=== PATIENT | female | born 2000 | race American Indian/Alaskan Native ===

== ENCOUNTER 2024-06-14 13:09 | Observation (INO) ==
--- OUTSIDE RECORDS SUMMARY | 2024-06-14 13:13 | External Medical Summary | Continuity of Care Document ---
Author Name Unknown Organization [place] [address] DARCY LUKE Address [address] [place] [address] [phone] [place] [phone] Care Team Providers Care Plant Utility Person Name Role Phone June Conde Primary Care Physician [phone] [id number] Date(s): 06/02/24 - 06/02/24 [place] [address] DARCY STRONG [facility] Obstetrics and Gynecology [address] [place] [address], [phone] [place] [phone] Encounter Diagnosis 20 weeks gestation of (Discharge Diagnosis) - 06/02/24 Pompe's disease(Discharge Diagnosis) - 06/02/24 Placenta previa(Discharge Diagnosis) - 06/02/24 Discharge Disposition: Home or Self Care Attending Physician: CHANCE Parsons Amy L Referring Physician: MD Zhanna, Ree Wan Allergies, Adverse Reactions, Alerts Substance Criticality Severity Reaction Reaction Severity Status peaches lips swell itchy mouth Active peanut allergen extract 1 Edema face/lips/tongue Active 1Outside Source Comment: Mild edema to lips Assessment and Plan Extracted from: Title:MFM return Office Visit Author:Guanakito Parsons Amy L Date:06/02/24 24yo w/ MARJORIE 10/18/24 1)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 - Plan established to continue ERT during to avoid neuromuscular decline.Audra wishes to continue ERT every 2 weeks. --------No adverse effects to breast-fed infants from mothers on ERT have been noted so far, but no information is available around the safety of ERT while breast-feeding. -------If preferred, the mother may use previously expressed milk during the 24 h after the last infusion and discard expressed milk during this time. - Cardiology, Scheduled in Cardio-OB clinic on 07/03/24 - Neurology, not scheduled at this time. referral was sent 04/21/24, will try to do in [facility] Neuro Imbedded clinic--will check on this scheduling via emessage to scheduling on 06/02. - Pulmonology,completed 05/14/[address] Peraza; Her clinical picture is consistent with restrictive ventilatory pattern related to neuromuscular/extrathoracic weakness secondary to Pompe's disease. She does not need to follow up with us, she can follow with her Professor Of Literacy near her home. Advised that if her symptoms were to worsen, she should reach out to us or her Professor Of Literacy earlier as it can be difficult to assess in her case if it is the or her disease causing the symptoms. - Genetics consults pt reports she sees Genetics at an outside facilityand has ongoing care established there - Anesthesia, Scheduled for 09/23/2024 ----Anesthetic input should be discussed and arranged early, with local or regional anesthesia being the techniques of choice, while bearing in mind that muscular skeletal abnormalities may make this difficult. - Delivery Planning Considerations: Discussions about mode of delivery and available options werepresented at MFM consult.Consideration should perhaps be given to a limited length of active second stage (pushing), with an elective assisted vaginal delivery planned, if delivery is not imminent within a specified time period.Audra was not interested in pursing this option. 2)Class III obesity, BMI >40 -Aware of associated risks, see MFM consult -Early GTT returned at 150 and ordered 3 hr OGTT 06/02/2024to be completed at [facility]. -limit weight gainto 11-20lbs - echo scheduled 06/16/2024 -declined cf-DNA screening -Low dose ASA 81mg for PET -Weeklyantenatal testing beginning at 34+0weeks GA 3)LUCY - Continue CPAP use during - f/u with sleep medicine asneeded/per routineand in the periodas recommended 4) Suspected Chronic Hypertension with elevated BP prior to 20 weeks gestation with h/o elevated Liver enzymes and fatty liver - 11/07/2023-122/98. 05/05/2024-16w2d GA BP 141/81, 05/12/2024 147/86 and 151/81. - 05/12 Creatinine, ALT, AST, and platelets are normal in outside records. - 05/05 PCR urine normal - patient believes these BP elevations are related to anxiety associated with office visits and she does not have elevations with her q2wk infusions when they check her BP frequently. -up to date reviewed and emailed to patient on Preeclampsia on 06/02/2024. - taking home BPs with her monitor and have been normal. 5) Complete Placenta Previa on 06/02/2024 detailed ultrasound. - pelvic rest reviewed with couple until previa clears cervix. 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 GBS at 36wks / Care Planning: Gender Unknown-does not want to know sex of baby. Pool Installer Care-TBD Feeding Preference to be discussed--Breast vs. Formula Contraceptive Plan to be made Delivery Plan Induction of labor at 39 weeks for coordination of care.Will plan delivery planning visit around 32-34 wks GA w/ MFM attending RTO as scheduled. Reviewed 09/04 triage number with couple. Instructed to call with any concerns. Medications aspirin 81 mg oral tablet, chewable Start: 04/21/24 10:53:00 AM EDT, 1 tab, PO, Daily, Disp# 30 tab, [facility] Start Date: 04/21/24 Status: Ordered Nexviazyme 100 mg intravenous injection Start: 10/18/23 9:35:00 AM EST Start Date: 10/18/23 Status: Ordered Multivitamins with Vitamin B Complex, Vitamin C, Minerals and L- Methylfolate oral capsule Start: 10/18/23 9:35:00 AM EST Start Date: 10/18/23 Status: Ordered pyridoxine 25 mg oral tablet Start: 05/05/24 11:28:00 PM EDT, 1 tab, PO, q8h, Disp# 30 tab, Refills: 1, B6- take for nausea, Pharmacy: [facility] Start Date: 05/05/24 Status: Ordered Problem List Condition Confirmation Course Effective Dates Status Health atus Informant Multiple nevi Confirmed Active Recurrent nevus Confirmed Active Confirmed 01/12/24 Active Seborrhea Confirmed Active Cutaneous skin tags Confirmed Active Diagnosis Diagnosis Type Effective Dates Health Status Cl inical Service Informant 20 weeks gestation of Discharge Diagnosis 06/02/24 Placenta previa Discharge Diagnosis 06/02/24 Pompe's disease Discharge Diagnosis 06/02/24 Procedures Procedure Date Related Diagnosis Body Site Status Excision 10/25/23 Completed Skin tag 10/18/23 Completed Liver biopsy sample 2022 Compl eted Excision 2018 Completed REMOVE TONSILS AND ADENOIDS 2011 Completed Artery of thigh 2 2007 Complet ed Surgery 2006 Completed 1removal of [place] 2 stage surgery 2L artery repair - patient accidentally dropped scissors and "caught them" her legs; severed her artery and underwent repair. Vital Signs Most recent to oldest [Reference Range]: 1 Patient Weight 131 kg (06/02/24 4:20 PM) Heart Rate 106 bpm (06/02/24 4:20 PM) Blood Pressure 125/83mmHg (06/02/24 4:20 PM) Cuff Pulse Pressure 42 mmHg (06/02/24 4:20 PM) BP Location # 1 Left Arm (06/02/24 4:20 PM) Social History Social History Type Response Smoking Status Never smoked cigaret carlos Sex Sex Representation Female (finding) Obstetrics Outpt Note * CHANCE Parsons Amy L: MODIFY, PERFORM, MODIFY Event Display: Obstetrics Outpt Note Authored Date: [id number] Chief Complaint return M appt History of Present Illness MFM return appt at [facility]. Patient concerns/questions:patient doing well. Here with her , Emile, for appt. Had questions regarding suspected chronic hypertension. Provided up to date on preeclampsia reviewed with her and patient today. She is to review and let me know of any questions. Reviewed current ultrasound that show complete placental previa and need for pelvic rest/no intercourse with couple today. Will repeat placenta check at next upcoming ultrasounds. Traveling in plane to [place] and then to [place]. Reviewed precautions and to continue to take her ASA 81 mg daily along with puja stockings. She has access to her records via patient portal. States good movement for gestational age. ROS: Denies any vaginal bleeding, leakage of fluid, pain, worsening swelling, SOB, fever, or concerning uterine cramping. Reviewed medications,refills, and patient's upcoming schedule. Visit Vital Signs/Measurements Systolic Blood Twlkaqrs207 mmHg Diastolic Blood Pqnehnxm57 mmHg Patient Pcqxtw284 kg Patient alert, calm, and in no apparent distress. FH not done as ultrasound was performed.No BLE swelling. OB History History(0,0,0,0) No previous pregnancies history have been recorded Images * Final Report * Report SERVICE(S) PROVIDED: US Detailed Anatomy, 1 fetus 13094 US Transvaginal 14502 INDICATIONS: 20 weeks gestation of Z3A.20 Pompe's Disease Morbid Obesity (severe obesity with BMI >= 35 kg/m2 Complete previa HEAD OF DRAMA: Technique: N/A EVALUATION: Num Of Fetuses: 1 Preg. Location: Intrauterine Heart Rate(bpm): 143 Cardiac Activity: Present Presentation: Cephalic Placenta: Posterior Complete Previa P. Cord Insertion: NOT well seen Amniotic Fluid ANDREINA FV: Subjectively within normal limits Largest Pocket(cm) 4.1 --------- BIOMETRY: --------- BPD: 46.2 mm G. Age: 20w 0d 36 % CI: 74.65 % 70 - 86 FL/HC: 19.9 % 16.8 - 19.8 HC: 169.7 mm G. Age: 19w 4d 14 % HC/AC: 1.10 1.09 - 1.39 AC: 153.6 mm G. Age: 20w 4d 53 % FL/BPD: 72.9 % FL: 33.7 mm G. Age: 20w 4d 52 % FL/AC: 21.9 % 20 - 24 HUM: 31.8 mm G. Age: 20w 4d 61 % CER: 19.4 mm G. Age: 18w 5d 8 % Est. FW: 354 gm 0 lb 12 oz 54 % GESTATIONAL AGE: Clinical MARJORIE: 20w 2d MARJORIE: 10/18/24 U/S Today: 20w 1d MARJORIE: 10/19/24 Best: 20w 2d Det. By: Clinical MARJORIE MARJORIE: 10/18/24 TARGETED ANATOMY: Central Nervous System Calvarium/Cranial V.: Appears WNL Cereb./Vermis: Appears WNL Intracranial Kari: Appears WNL Cisterna Magna: Appears WNL Cavum: Appears WNL Midline Falx: Appears WNL Parenchyma: Appears WNL 3rd Ventricle: Appears WNL Lateral Ventricles: Appears WNL 4th Ventricle: Appears WNL Choroid Plexus: Appears WNL Spine Cervical: Appears WNL Sacral: Appears WNL Thoracic: Appears WNL Shape/Curvature: Appears WNL Lumbar: Appears WNL Head/Neck Face: Coronal WNL Profile: NOT well seen Lips: NOT well seen Orbits/Eyes: AppearsWNL Neck: NOT well seen Mandible: Appears WNL Nasal Bone: NOT well seen Maxilla: Appears WNL Palate: Appears WNL Thorax Thoracic Contour: Appears WNL Ductal Arch: NOT well seen Lungs: Appear WNL SVC: NOTwell seen 4 Chamber View: NOT well seen Interventr. Septum: NOT well seen Cardiac Activity: Appears WNL Cardiac [place]: Lt chest 45 degree Cardiac Rhythm: Appears WNL Diaphragm: NOT well seen Cardiac Situs: Appears WNL 3 Vessel View: NOT well seen Rt Outflow Tract: NOT well seen 3 V Trachea View: NOT well seen Lt Outflow Tract: NOT well seen IVC: NOT well seen Aortic Arch: Appears WNL Crossing: NOT well seen Abdomen Ventral Wall: Appears WNL Lt Kidney: Appears WNL Situs: Appears WNL Rt Kidney: Appears WNL Stomach: Normal, on left side Bladder: Appears WNL Liver: Appears WNL Bowel: Normal echogenicity Extremities Lt Humerus: NOT well seen Lt Femur: Appears WNL Rt Humerus: Appears WNL Rt Femur: Appears WNL Lt Forearm: NOT well seen Lt Lower Leg: NOT well seen Rt Forearm: WNL, 2 long bones Rt Lower Leg: NOT well seen Lt Hand: Appears WNL Lt Foot: NOT well seen Rt Hand: NOT well seen Rt Foot: NOT well seen Other Umbilical Cord: 3-vessel cord Genitalia: NOT well seen Masses: None visualized Comment: Renal arteries visualized. CERVIX UTERUS ADNEXA: Cervix Length: 4.06 cm. TV US done - Complete previa Uterus Normal shape and size Right Ovary No adnexal masses seen Left Ovary No adnexal masses seen Cul De Sac No fluid Adnexa Unremarkable IMPRESSION: No gross structural abnormalities are noted. Not all malformations can be detected on ultrasound. The anatomy survey is incomplete ( position) (see targeted anatomy section above for details). The patient has a visit with to follow CHANCE Granda ultrasound. Transvaginal ultrasound shows the cervical length to be 4.06 cm. RECOMMENDATIONS: A [employer] text was sent to CHANCE Granda regarding today's findings. 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 - Plan established to continue ERT during to avoid neuromuscular decline.Audra wishes tocontinue ERT every 2 weeks. --------No adverse effects to breast-fed infants from mothers on ERT have been noted so far, but noinformation is available around the safety of ERT while breast-feeding. -------If preferred, the mother may use previously expressed milk during the 24 h after the last infusion and discard expressed milk during this time. - Cardiology, Scheduled in Cardio-OB clinic on 07/03/24 - Neurology, not scheduled at this time. referral was sent 04/21/24, will try to do in [facility] Neuro Imbedded clinic--will check on this scheduling via emessage to scheduling on 06/02. - Pulmonology,completed 05/14/[address] Dr[address] Peraza; Her clinical picture is consistent with restrictive ventilatory pattern related to neuromuscular/extrathoracic weakness secondary to Pompe's disease. She does not need to follow up with us, she can follow with her Professor Of Literacy near her home. Advised that if her symptoms were to worsen, she should reach out to us or her Professor Of Literacy earlier as itcan be difficult to assess in her case if it is the or her disease causing the symptoms. - Genetics consults pt reports she sees Genetics at an outside facilityand has ongoing care established there - Anesthesia, Scheduled for 09/23/2024 ----Anesthetic input should be discussed and arranged early, with local or regional anesthesia being the techniques of choice, while bearing in mind that muscular skeletal abnormalities may make thisdifficult. - Delivery Planning Considerations: Discussions about mode of delivery and available options werepresented at [facility] consult.Consideration should perhaps be given to a limited length of active second stage (pushing), with an elective assisted vaginal delivery planned, if delivery is not imminent within a specified time period.Audra was not interested in pursing this option. 2)Class III obesity, BMI >40 -Aware of associated risks, see [facility] consult -Early GTT returned at 150 and ordered 3 hr OGTT 06/02/2024to be completed at [facility]. -limit weight gainto 11-20lbs - echo scheduled 06/16/2024 -declined cf-DNA screening -Low dose ASA 81mg for PET -Weeklyantenatal testing beginning at 34+0weeks GA 3)LUCY - Continue CPAP use during - f/u with sleep medicine asneeded/per routineand in the periodas recommended 4) Suspected Chronic Hypertension with elevated BP prior to 20 weeks gestation with h/o elevatedLiver enzymes and fatty liver - 11/07/2023-122/98. 05/05/2024-16w2d GA BP 141/81, 05/12/2024 147/86 and 151/81. - 05/12 Creatinine, ALT, AST, and platelets are normal in outside records. - 05/05 PCR urine normal - patient believes these BP elevations are related to anxiety associated with office visits and shedoes not have elevations with her q2wk infusions when they check her BP frequently. -up to date reviewed and emailed to patient on Preeclampsia on 06/02/2024. - taking home BPs with her monitor and have been normal. 5) Complete Placenta Previa on 06/02/2024 detailed ultrasound. -pelvic rest reviewed with couple until previa clears cervix. 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 GBS at 36wks [place]/ Care Planning: Gender Unknown-does not want to know sex of baby. Pool Installer Care-TBD Feeding Preference to be discussed--Breast vs. Formula Contraceptive Plan to be made Delivery Plan Induction of labor at 39 weeks for coordination of care.Will plan delivery planning visit around 32-34 wks GA w/ MFM attending RTO as scheduled. Reviewed 09/04 triage number with couple. Instructed to call with any concerns. LMP/EGA/MARJORIE Gestational Age (EGA) and MARJORIE * Note: EGA calculated as of 06/02/2024 MARJORIE:10/18/2024EGA*:20 weeks 2 days Type:AuthoritativeMethod Date:01/12/2024 Method:Last Menstrual Period(01/12/2024) Confirmation:Confirmed Description:-- Comments:-- Entered by:JOE Roth Rachel A on 04/21/2024 Other MARJORIE Calculations for this : No additional MARJORIE calculations have been recorded for this Problem List/Past Medical History Ongoing Cutaneous skin tags Multiple nevi Recurrent nevus Seborrhea Procedure/Surgical History Excision| Service Date: 10/25/2023Skin tag| Service Date: 10/18/2023Liver biopsy sample| Service Date: 2022Excision| Service Date: 2018REMOVE TONSILS AND ADENOIDS| Service Date: rtery of thigh| Service Date: 2007Surgery| Service Date: 2006 Medications aspirin(aspirin 81 mg oral tablet, chewable), 81 mg= 1 tab, PO, Daily avalglucosidase oumar(Nexviazyme 100 mg intravenous injection) multivitamin, ( Multivitamins with Vitamin B Complex, Vitamin C, Minerals and L-Methylfolate oral capsule) pyridoxine(pyridoxine 25 mg oral tablet), 25 mg= 1 tab, PO, q8h, 1 refills Allergies peacheslips swell, itchy mouth peanut allergen extractEdema face/lips/tongue Social History Smoking Status Never smoked cigarettes Family History Skin cancer: Unknown. Health Status Family Member(s) Lab Results ABO/Rh: O POSITIVE Antibody Scr: NEGATIVE Chlamydia trachomatis, by PCR: NEGATIVE GTT (1 hr): 150 mg/dL HBsAg: NONREACTIVE HCV Ab: NONREACTIVE Hgb: 12.9 g/dL Neisseria gonorrhoeae, by PCR: NEGATIVE Plts: 291 K/uL Prot/Cret (u): 0.1 Rubella Ig.3 I.U./mL Rubella IgG Antibody Interpretation: REACTIVE Treponemal Ab Screen: NONREACTIVE Urine.Cx: Final: [1]MFM Ultrasound; MD Sugar, Celso Martin 06/02/2024 13:58 EDT Electronic Signature on File Electronically Reviewed/Signed by: CHANCE Arriaga Author Signature Dt/Tm:06/02/2024 08:09 PM Division of Maternal- Medicine [address], [address] [place] [id number] ALS Note * MD Sugar, Celso Martin: VERIFY, PERFORM Event Display: Report Authored Date: [id number] SERVICE(S) PROVIDED: US Detailed Anatomy, 1 fetus 44408 US Transvaginal 48340 INDICATIONS: 20 weeks gestation of Z3A.20 Pompe's Disease Morbid Obesity (severe obesity with BMI >= 35 kg/m2 Complete previa HEAD OF DRAMA: Technique: N/A EVALUATION: Num Of Fetuses: 1 Preg. Location: Intrauterine Heart Rate(bpm): 143 Cardiac Activity: Present Presentation: Cephalic Placenta: Posterior Complete Previa P. Cord Insertion: NOT well seen Amniotic Fluid ANDREINA FV: Subjectively within normal limits Largest Pocket(cm) 4.1 --------- BIOMETRY: --------- BPD: 46.2 mm G. Age: 20w 0d 36 % CI: 74.65 % 70 - 86 FL/HC: 19.9 % 16.8 - 19.8 HC: 169.7 mm G. Age: 19w 4d 14 % HC/AC: 1.10 1.09 - 1.39 AC: 153.6 mm G. Age: 20w 4d 53 % FL/BPD: 72.9 % FL: 33.7 mm G. Age: 20w 4d 52 % FL/AC: 21.9 % 20 - 24 HUM: 31.8 mm G. Age: 20w 4d 61 % CER: 19.4 mm G. Age: 18w 5d 8 % Est. FW: 354 gm 0 lb 12 oz 54 % GESTATIONAL AGE: Clinical MARJORIE: 20w 2d MARJORIE: 10/18/24 U/S Today: 20w 1d MARJORIE: 10/19/24 Best: 20w 2d Det. By: Clinical MARJORIE MARJORIE: 10/18/24 TARGETED ANATOMY: Central Nervous System Calvarium/Cranial V.: Appears WNL Cereb./Vermis: Appears WNL Intracranial Kari: Appears WNL Cisterna Magna: Appears WNL Cavum: Appears WNL Midline Falx: Appears WNL Parenchyma: Appears WNL 3rd Ventricle: Appears WNL Lateral Ventricles: Appears WNL 4th Ventricle: Appears WNL Choroid Plexus: Appears WNL Spine Cervical: Appears WNL Sacral: Appears WNL Thoracic: Appears WNL Shape/Curvature: Appears WNL Lumbar: Appears WNL Head/Neck Face: Coronal WNL Profile: NOT well seen Lips: NOT well seen Orbits/Eyes: Appears WNL Neck: NOT well seen Mandible: Appears WNL Nasal Bone: NOT well seen Maxilla: Appears WNL Palate: Appears WNL Thorax Thoracic Contour: Appears WNL Ductal Arch: NOT well seen Lungs: Appear WNL SVC: NOT well seen 4 Chamber View: NOT well seen Interventr. Septum: NOT well seen Cardiac Activity: Appears WNL Cardiac [place]: Lt chest 45 degree Cardiac Rhythm: Appears WNL Diaphragm: NOT well seen Cardiac Situs: Appears WNL 3 Vessel View: NOT well seen Rt Outflow Tract: NOT well seen 3 V Trachea View: NOT well seen Lt Outflow Tract: NOT well seen IVC: NOT well seen Aortic Arch: Appears WNL Crossing: NOT well seen Abdomen Ventral Wall: Appears WNL Lt Kidney: Appears WNL Situs: Appears WNL Rt Kidney: Appears WNL Stomach: Normal, on left side Bladder: Appears WNL Liver: Appears WNL Bowel: Normal echogenicity Extremities Lt Humerus: NOT well seen Lt Femur: Appears WNL Rt Humerus: Appears WNL Rt Femur: Appears WNL Lt Forearm: NOT well seen Lt Lower Leg: NOT well seen Rt Forearm: WNL, 2 long bones Rt Lower Leg: NOT well seen Lt Hand: Appears WNL Lt Foot: NOT well seen Rt Hand: NOT well seen Rt Foot: NOT well seen Other Umbilical Cord: 3-vessel cord Genitalia: NOT well seen Masses: None visualized Comment: Renal arteries visualized. CERVIX UTERUS ADNEXA: Cervix Length: 4.06 cm. TV US done - Complete previa Uterus Normal shape and size Right Ovary No adnexal masses seen Left Ovary No adnexal masses seen Cul De Sac No fluid Adnexa Unremarkable IMPRESSION: No gross structural abnormalities are noted. Not all malformations can be detected on ultrasound. The anatomy survey is incomplete ( position) (see targeted anatomy section above for details). The patient has a visit with to follow CHANCE Granda ultrasound. Transvaginal ultrasound shows the cervical length to be 4.06 cm. RECOMMENDATIONS: A [employer] text was sent to CHANCE Granda regarding today's findings. Celso Wooten MD Electronically Signed Final Report 06/02/2024 03:23 pm Patient Care team information Care Team Personnel Name: ANABELLE Conde, June Olson Position: Referring DIRECT Member Role: Primary Care Provider Address: [address] [place] [id number]
--- OUTSIDE RECORDS SUMMARY | 2024-06-14 13:13 | External Medical Summary | Continuity of Care Document ---
Author Name Unknown Organization [facility] Nikki LUKE Address [address] [place] [phone] Care Team Providers Care Tobacco Buyer Name Role Phone CondeJune Primary Care Physician [phone] [facility] [id number] Date(s): 05/14/24 - 05/14/24 [place] [address] DARCY STRONG [facility] Obstetrics and Gynecology [address] [place] [address], [address] [place] [address] [phone] Encounter Diagnosis H/O fall(Discharge Diagnosis) - 05/14/24 (Discharge Diagnosis) - 05/14/24 Discharge Disposition: Home or Self Care Attending Physician: CIARAN Phillips Courtney L Referring Physician: CIARAN Phillips Courtney L Allergies, Adverse Reactions, Alerts Substance Criticality Severity Reaction Reaction Severity Status peaches lips swell itchy mouth Active peanut allergen extract 1 Edema face/lips/tongue Active 1Outside Source Comment: Mild edema to lips Assessment and Plan Extracted from: Title:OB Extended Office Visit Author:AGUILAR Phillips Courtney L Date:05/14/24 1.H/O fall 24-year-old 1 at 17 weeks 4 days with history of fall6 days ago. Evaluated in her home emergency room with normal findings by ultrasound. Reassured normal findings today. Some elevation in blood pressure consistent with chronichypertension. She is not on any medication. At this time, her blood pressures are not consistently elevated to support medication use. Encouraged home blood pressure monitoring.Advised that she bring herlog to her next appointment as well as her cuff tocompare to our findings. We spent some time talking about the difference between chronic hypertension versus preeclampsia. She is taking ababy aspirin daily. I will have herprimaryOB provider, Zoe Preciado, reach out to her production floater with discussion aboutplans for future infusion. 2. Continue with previously scheduled care and ultrasound. Contact the office with any questions that arise. I have personally spent 25minutes in face to face and non face to face activities on the date of service. Activities included review of past records, review of past lab results, counseling patient, entering orders, and completing clinical documentation. Medications aspirin 81 mg oral tablet, chewable Start: 04/21/24 10:53:00 AM EDT, 1 tab, PO, Daily, Disp# 30 tab, [facility] Start Date: 04/21/24 Status: Ordered [...] Refills: 1, B6- take for nausea, Pharmacy: [facility] Start Date: 05/05/24 Status: Ordered Mental Status 05/14/24 Barriers to Learning one year None evide nt Mandatory Health Literacy Documentation Yes Health Literacy Communication Barriers N ever Primary Language Czech Problem List Condition Confirmation Course Effective Dates Status Health atus Informant Multiple nevi Confirmed Active Recurrent nevus Confirmed Active Confirmed 01/12/24 Active Seborrhea Confirmed Active Cutaneous skin tags Confirmed Active Diagnosis Diagnosis Type Effective Dates Health Status Clini domo Service Informant H/O fall Discharge Diagnosis 05/14/24 Discharge Diagnosis 05/14/24 Procedures Procedure Date Related Diagnosis Body Site Status Excision 10/25/23 Completed Skin tag 10/18/23 Completed Liver biopsy sample 2022 Compl eted Excision 2018 Completed REMOVE TONSILS AND ADENOIDS 2011 Completed Artery of thigh [address] [facility] ed Surgery 2006 Completed 1removal of [place] 2 stage surgery 2L artery repair - patient accidentally dropped scissors and "caught them" her legs; severed her artery and underwent repair. Vital Signs Most recent to oldest [Reference Range]: 1 Patient Weight 129.8 kg (05/14/24 12:59 PM) Blood Pressure 130/82mmHg (05/14/24 12:59 PM) Cuff Pulse Pressure 48 mmHg (05/14/24 12:59 PM) BP Location # 1 Left Arm (05/14/24 12:59 PM) Social History Social History Type Response Smoking Status Never smoked cigaret carlos Sex Sex Representation Female (finding) Obstetrics Outpt Note * CIARAN Pihllips Torie Toribio: PERFORM Event Display: Obstetrics Outpt Note Authored Date: [id number] Chief Complaint ER follow up, OB, elevated BP during infusions History of Present Illness Renetta a 24-year-old 1 at 17 weeks 4 days with a due date of October 18, 2024. She is amaternal- medicine patientwho is followedby them for high risk complicated by Pompe'sdisease, obesity,obstructive sleep apnea, and hypertension. She comes in today for a problem focused visit. She messaged in with the following concern: "I fell on on some mulch. I twisted my foot pretty bad but I fell on my butt not on my stomach. I did have to go to the ER due to the foot injury and I did ask for an ultrasound where every thing looked fine. I also understand that baby is protected inside right? I just wanted to shoot you a message to see what you think. I think I am just a nervous first time mom and want to make sure I shouldnt be worrying too much. I do not have any bleeding and no abnormal cramps." She was evaluated in the emergency room and had an ultrasound demonstrating normal findings. She comes in today for further reassurancethrough heart tones. The patient does have her anatomic survey scheduled for June 02,paired with her next provider visit. Today, she reports no vaginal bleeding, pelvic pain, or unusual discharge. She denies leakage of fluid. She tells me today her primary reason for coming in today is to discuss her blood pressure. She noticed that during a recent infusionshe had some blood pressures that were escalating during the infusion. Theydiscontinued the infusion because of some elevated blood pressures. Those blood pressures tended to range between 130s over [id number] overshe needs an [id number] some 90s. These occurred during her infusion. The production floater to manages her infusions wonders whether or not any accommodations should be madebecause of this. The patient tells me that she had some lab work associated with elevated blood pressure completed at an outside facility. I do not havethose records. Today, she is feeling well. She does have a home blood pressure cuff. I recommended that she take her blood pressure dailyand bring that log to her next appointment. I also recommended that she bring her blood pressure cuff to the appointment so that we can make sure that it is consistent with what we wouldnote. Visit Vital Signs/Measurements Systolic Blood Rwpwnndp103 mmHg Diastolic Blood Rctkabhw00 mmHg Patient Grhezq504.8 kg Additional Information Antepartum CommentSee note Next Appointment2 weeks OB History History(0,0,0,0) No previous pregnancies history have been recorded CRADLE PLACER History No qualifying data available. Review of Systems Constitutional: [No fevers, chills, sweats] Eye: [No recent visual problems] Respiratory: [No shortness of breath, cough] Cardiovascular: [No Chest pain, palpitations, syncope] Gastrointestinal: [No nausea, vomiting, diarrhea] Genitourinary: [No hematuria, no dysuria, no unexpected vaginal bleeding, no change in vaginal discharge, no pelvic pain] Physical Exam Vitals & Measurements BP:130/82 WT:129.800kg(Dosing) WT:129.8kg heart rate 155 Assessment/Plan 1.H/O fall 24-year-old 1 at 17 weeks 4 days with history of fall6 days ago. Evaluated in her home emergency room with normal findings by ultrasound. Reassured normal findings today. Some elevation in blood pressure consistent with chronichypertension. She is not on any medication. At this time, her blood pressures are not consistently elevated to support medication use. Encouraged home blood pressure monitoring.Advised that she bring herlog to her next appointment as well as her cuff tocompare to our findings. We spent some time talking about the difference between chronic hypertension versus preeclampsia. She is taking ababy aspirin daily. I will have herprimaryOB provider, Zoe Preciado, reach out to her production floater with discussion aboutplans for future infusion. 2. Continue with previously scheduled care and ultrasound. Contact the office with any questions that arise. I have personally spent 25minutes in face to face and non face to face activities on the date of service. Activities included review of past records, review of past lab results, counseling patient, entering orders, and completing clinical documentation. LMP/EGA/MARJORIE Gestational Age (EGA) and MARJORIE * Note: EGA calculated as of 05/14/2024 MARJORIE:10/18/2024EGA*:17 weeks 4 days Type:AuthoritativeMethod Date:01/12/2024 Method:Last Menstrual Period(01/12/2024) Confirmation:Confirmed [...] 1 tab, PO, q8h, 1 refills Allergies No Known Medication Allergies peacheslips swell, itchy mouth Social History Smoking Status Never smoked cigarettes [...] REACTIVE Treponemal Ab Screen: NONREACTIVE Urine.Cx: Final: Electronic Signature on File Electronically Reviewed/Signed by: Torie Phillips CNM, MS Author Signature Dt/Tm:05/14/2024 01:35 PM Division of Women's Health CL Patient Care team information Care Team Personnel Name: ANABELLE Conde, June Olson Position: Referring DIRECT Member Role: Primary Care Provider Address: [address] [place] [address] [place] [address]
--- OUTSIDE RECORDS SUMMARY | 2024-06-14 13:13 | External Medical Summary | Continuity of Care Document ---
Author Name Unknown Organization [facility] Address [address] [place] [address] [place] [phone] Care Team Providers Care Telephone Exchange Operator Name Role Phone June Conde Primary Care Physician [phone] [id number] Date[facility] 05/14/24 - 05/14/24 [facility] [address], [address], [address] [place] [address] Encounter Diagnosis Pompe's disease(Discharge Diagnosis) - 05/14/24 Discharge Disposition: Home or Self Care Attending Physician: DO Peraza Daniel Referring Physician: ANABELLE Conde Katrina A Allergies, Adverse Reactions, Alerts Substance Criticality Severity Reaction Reaction Severity Status peaches lips swell itchy mouth Active peanut allergen extract 1 Edema face/lips/tongue Active 1Outside Source Comment: Mild edema to lips Assessment and Plan Extracted from: Title:Pulmonary Office Visit Note Author:MD Tanisha, Nirzari Date:05/14/24 Renetta a 24 year [id number] at 16w2d GA with an estimated due date of 10/18/2024y LMP consistent with a8 week ultrasound who has 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 Known pulmonary complications in pompe's disease: 1. Respiratory muscle weakness and lung function decline -- Enzyme Replacement Therapy:established to continue ERT (with recombinant human Alglucosidase alpha)during to avoid neuromuscular decline.She plans to continue ERT every 2 weeks. Continue to follow up with [facility] for ERT and yearly PFTs -- PFTs: Pulmonary function testing with lung volume study shows compromised expiratory and inspiratory pressures, 56% and 46% of predicted respectively consistent with neuromuscular disease/extrathoracic weakness contributing to restrictive ventilatory pattern. Recent earlier PFTs were done with sitting and supine position showing 10-15% drop in FEV1 and FVC with change in position. This is considered within physiologic range expected with change in position from sitting to supine position.Her clinical picture is consistent with restrictive ventilatory pattern related to neuromuscular/extrathoracic weakness secondary to Pompe's disease. She does not need to follow up with us, she can follow with her Assistant Basketball Coach near her home. Advised that if her symptoms were to worsen, she should reach out to us or her Assistant Basketball Coach earlier as it can be difficult to assess in her case if it is the or her disease causing the symptoms. Discussed with Dr. Karmen Garay Pulmonary/Critical Care Medicine PGY-5 Medications aspirin 81 mg oral tablet, chewable Start: 04/21/24 10:53:00 AM EDT, 1 tab, PO, Daily, Disp# 30 tab, [facility] Start Date: 04/21/24 Status: Ordered [...] Refills: 1, B6- take for nausea, Pharmacy: [facility] Start Date: 05/05/24 Status: Ordered Mental Status 05/14/24 Barriers to Learning one year None evide nt Mandatory Health Literacy Documentation Yes Health Literacy Communication Barriers N ever Primary Language Thai Problem List Condition Confirmation Course Effective Dates Status Health St atus Informant Multiple nevi Confirmed Active Recurrent nevus Confirmed Active Confirmed 01/12/24 Active Seborrhea Confirmed Active Cutaneous skin tags Confirmed Active Diagnosis Diagnosis Type Effective Dates Health Status Cl inical Service Informant Pompe's disease Discharge Diagnosis 05/14/24 Non-Specified Procedures Procedure Date Related Diagnosis Body Site [...] Most recent to oldest [Reference Range]: 1 Height 176.5 cm (05/14/24 2:56 PM) Patient Weight 130.2 kg (05/14/24 2:56 PM) Body Mass Index 41.79 kg/m2 (05/14/24 2:56 PM) Temperature [36.5-37.9 DegC] 37.0 DegC (05/14/24 2:56 PM) Heart Rate 105 bpm (05/14/24 2:56 PM) Respiratory Rate 16 br/min (05/14/24 2:56 PM) Blood Pressure 119/76mmHg (05/14/24 2:56 PM) Cuff Pulse Pressure 43 mmHg (05/14/24 2:56 PM) BP Location # 1 Left Arm (05/14/24 2:56 PM) Social History Social History Type Response Smoking Status Never smoked cigaret carlos Sex Sex Representation Female (finding) Outpatient Note * DO Peraza Daniel: MODIFY DO Peraza Daniel: MODIFY, MODIFY, MODIFY, MODIFY Event Display: .Outpt Note Authored Date: [id number] History of Present Illness Renetta a 24 year [id number] 16w2d GA with an estimated due date of 10/18/2024y LMP consistentwith a8 week ultrasound who has 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 She notes that she has a Assistant Basketball Coach at [facility], Dr. Mars who follows her recently. She notesthat she has a Pinking Sewing Machine Operator at [facility], Michelle Dougherty, who follows her regularly. She gets yearly PFTs and Cardiac tests from her. She was diagnosed in Jul of last year. She is getting ERT every 2 weeks, notes that it has been helping a lot. Notes that her function is a lot better, earlier she was not able to pick pulling machine tender tissue or pick pulling machine tender weight or anything off the ground but now she is able to lift 50 pounds weight off the ground also. She notes that she does not have any symptoms of cough or SOB or muscle weakness now. She notes that she does not use any inhalers, used them only when she was very young. She is on CPAP of 4, shehas been on it for 3 months now. She has very mild sleep apnea and she got sleep study before infusions so unclear if she has sleep apnea truly. She notes that the OB clinic here wanted to her to seepulmonologist here at [place] just so she is established incase she needs us if her symptoms were to worsen. Review of Systems A 10-point review of pertinent systemsis negative except as noted in HPI. 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 Known pulmonary complications in pompe's disease: 1. Respiratory muscle weakness and lung function decline -- Enzyme Replacement Therapy:established to continue ERT (with recombinant human Alglucosidase alpha)during to avoid neuromuscular decline.She plans to continue ERT every 2 weeks. Continue to follow up with [facility] for ERT and yearly PFTs -- PFTs: Pulmonary function testing with lung volume study shows compromised expiratory and inspiratory pressures, 56% and 46% of predicted respectively consistent with neuromuscular disease/extrathoracic weakness contributing to restrictive ventilatory pattern. Recent earlier PFTs were done with sitting and supine position showing 10-15% drop in FEV1 and FVC with change in position. This is considered within physiologic range expected with change in position from sitting to supine position.Her clinical picture is consistent with restrictive ventilatory pattern related to neuromuscular/extrathoracic weakness secondary to Pompe's disease. She does not need to follow up with us, she can follow with her Assistant Basketball Coach near her home. Advised that if her symptoms were to worsen, she should reach out to us or her Assistant Basketball Coach earlier as itcan be difficult to assess in her case if it is the or her disease causing the symptoms. Discussed with Dr. Karmen Garay Pulmonary/Critical Care Medicine PGY-5 Attestation Attending Attestation: I have personally seen the patient and reviewed and discussed the plan with the fellow above. Inaddition, I have personally reviewed the records, labs, and imaging. I agree with the fellows history, physical exam, assessment and plan of treatment as detailed above with the following additions: 24-year-old with past medical history of late onset type II glycogen-storage disease (Pompe's disease), obesity, and current who presents today as a new patient evaluation for her Pompe's disease. Started enzyme replacement and lung function has improved dramatically. Discussed general pulmonary conditions with , but otherwise recommended no additional follow-up with us unless something changes. Juan C Peraza D.O. Mold Runnerrepresentative Division of Pulmonary and Critical Care Problem List/Past Medical History Ongoing Cutaneous skin tags Multiple nevi Recurrent nevus Seborrhea Procedure/Surgical History Excision| Service Date: 10/25/2023Skin tag| Service Date: 10/18/2023Liver biopsy sample| Service Date: 2022Excision| Service Date: 2018REMOVE TONSILS AND ADENOIDS| Service Date: rtery of thigh| Service Date: 2007Surgery| Service Date: 2006 Medications ascorbic acid(Vitamin C) aspirin(aspirin 81 mg oral tablet, chewable), 81 mg= 1 tab, PO, Daily avalglucosidase oumar(Nexviazyme 100 mg intravenous injection) cholecalciferol(Vitamin D3) doxylamine-pyridoxine(Diclegis 10 mg-10 mg oral delayed release tablet), 2 tab, PO, qhs, 1 refills multivitamin, ( Multivitamins with Vitamin B Complex, Vitamin C, Minerals and L-Methylfolate oral capsule) pyridoxine(pyridoxine 25 mg oral tablet), 25 mg= 1 tab, PO, q8h, 1 refills Allergies No Known Medication Allergies peacheslips swell, itchy mouth Social History Smoking Status Never smoked cigarettes Family History Skin cancer: Unknown. Health Status Family Member(s) Recommendations Health Maintenance Pending(in the next year) OverDue Adult Influenza Vaccine due03/16/24and every 1year Due Adult COVID-19 Vaccination due05/14/24Unknown Frequency Adult Folic Acid Supplementation due05/14/24and every 3year Adult Social Determinants of Health Screening due05/14/24Unknown Frequency Adult Tdap/Td Vaccine due05/14/24Unknown Frequency Cervical Cancer Screening due05/14/24Unknown Frequency Satisfied(in the past 1 year) Satisfied Body Mass Index on05/05/24.Satisfied by JOSE Schilling Shalinda Hepatitis C Screening on04/21/24.Satisfied by Contributor_system, 10sec Electronic Signature on File CC: [place] Boothe [address] [place] [id number] * Electronically Reviewed/Signed by: Blanka Garay MD Author Signature Dt/Tm:05/14/2024 03:45 PM Resident Division of Pulmonary Medicine Electronically Reviewed/Signed by: Juan C Peraza DO Cosigner Signature Dt/Tm: 05/14/2024 04:11 PM Mold Runner, Division of Pulmonary and Critical Care Medicine [facility] [employer] SEAT FILLER Patient Care team information Care Team Personnel Name: ANABELLE Conde, June Olson Position: Referring DIRECT Member Role: Primary Care Provider Address: [address] [place] [id number] [place]
[2024-06-14 13:49] LABS: Basophils # (auto) 0.01 K/uL (0.00-0.20); Basophils % (auto) 0.1 %; Eosinophils # (auto) 0.05 K/uL (0.00-0.50); Eosinophils % (auto) 0.7 %; Hematocrit (blood only) 33.4 % (37.0-47.0); Hemoglobin 11.2 g/dl (12.0-16.0); Immature Granulocytes # (auto) 0.04 K/uL (0.01-0.20); Immature Granulocytes % (auto) 0.6 %; Lymphocytes # (auto) 0.32 K/uL (1.20-3.40); Lymphocytes % (auto) 4.6 %; Mean Corpuscular Hemoglobin 28.2 pg (25.0-34.0); Mean Corpuscular Hgb Conc 33.5 g/dL (32.0-36.0); Mean Corpuscular Volume 84.1 fL (80.0-100.0); Monocytes # (auto) 0.56 K/uL (0.11-0.59); Monocytes % (auto) 8.1 %; Neutrophils # (auto) 5.97 K/uL (1.40-6.50); Neutrophils % (auto) 85.9 %; Platelet Count 258 K/uL (130-400); RDW Coefficient of Variation 12.9 % (11.5-14.5); RDW Standard Deviation 39.2 fL (36.4-46.3); Red Blood Count 3.97 M/uL (4.20-5.40); White Blood Count 6.95 K/ul (4.8-10.8)
[2024-06-14] MEDS: SODIUM CHLORIDE 0.9% 1,000 ML IV ONE (13:50)
[2024-06-14 14:05] LABS: Appearance Urine Clear (Clear); Bilirubin Urine Negative (Negative); Blood Urine Negative (Negative); Color Urine Yellow; Glucose Urine UA Negative (Negative); Ketones Urine Negative (Negative); Leukocyte Esterase Urine Negative (Negative); Nitrite Urine Negative (Negative); Protein Urine Negative (Negative); Specific Gravity Urine 1.015 (1.000-1.030); Urobilinogen Urine Negative (Negative); pH Urine 8.5 (4.5-7.5)
[2024-06-14 14:12] LABS: Alanine Aminotransferase 31 U/L (7-52); Albumin Globulin Ratio 1.2 (0.9-2); Albumin Level 3.7 gm/dl (3.4-5.0); Alkaline Phosphatase 74 U/L (34-104); Anion Gap 7 (3-11); Aspartate Aminotransferase 31 U/L (13-39); BUN Creatinine Ratio 9.3 (10-20); Bilirubin,Total 0.3 mg/dl (0.2-1.0); Blood Urea Nitrogen 4 mg/dl (6-23); Calcium 9.1 mg/dl (8.6-10.3); Carbon Dioxide 25 mmol/L (21-32); Chloride 103 mmol/L (98-107); Creatinine Clr Calc Pharmacy 289.7 ml/min; Est GFR (African American) > 150.0 ml/min; Est GFR (Non-African American) 141.4 ml/min; Globulin 3.1 gm/dl (2.5-4.0); Glucose 94 mg/dl (70-99(Fasting)); Magnesium 1.5 mg/dl (1.7-2.4); Potassium 3.8 mmol/L (3.5-5.1); Sodium 135 mmol/L (136-145); Total Protein 6.8 gm/dl (6.0-8.3)
--- NOTE | 2024-06-14 14:14 | Emergency Department Note ---
ED Provider Note History of Present Illness Chief Complaint: Flu Like Symptoms Stated Complaint: SOB, 22 WEEKS PREG, FLU LIKE SYMPTOMS Time Seen by Provider: 06/14/24 13:56 24-year-old female who presents the emergency department with her for evaluation of multiple symptoms, including muscle aches, mild nonproductive cough, nausea, vomiting and loose stools. The patient reports that symptoms started overnight. Patient has had chills as well. She has not checked her temperature at home. The patient is currently in her second trimester high risk , with history of Pompe disease. Patient does receive IV enzyme replacement therapy (ERT). Patient also follows with Maternal Medicine at [facility], and locally with [facility] NURSERY TEACHER. The patient reports that she has had ongoing nausea throughout her entire , however her NURSERY TEACHER will not prescribe Zofran for her nausea. Patient denies any other known sick contacts. She denies any chest pain or significant shortness of breath. Home Medications Medication Instructions Recorded Confirmed Type aspirin 81 mg tablet,delayed 81 mg PO HS 06/14/24 06/14/24 History release avalglucosidase oumar-ngpt 100 mg 0 mg IV .Q 2 WEEKS 06/14/24 06/14/24 History intravenous solution (Nexviazyme) prenat.vits,domo,nir-rjer-[id number] 1 tab PO HS 06/14/24 06/14/24 History Allergies Allergy/AdvReac Type Severity Reaction Status Date / Time No Known Drug Allergies Allergy Unknown Verified 06/14/24 16:58 hazelnuts Allergy Intermediate tingly Uncoded 06/14/24 16:58 mouth and throat peaches Allergy Mild tingly Uncoded 06/14/24 16:58 tongue Past Med/Surg History Problem List (Updated 06/14/24 @ 16:38 by Harish Randall) Tachycardia (Acute) Pompe disease (Acute) High-risk in second trimester (Acute) Upper respiratory tract infection due to COVID-19 virus (Acute) Supervision of normal first Rash and nonspecific skin eruption Fatty liver Elevated LFTs Lumbosacral radiculopathy Alternating exotropia Weakness of both lower extremities Low back pain Hip pain, bilateral Proximal limb muscle weakness Medical History Pompe disease Oral allergy syndrome Seasonal rhinitis Limb girdle muscular dystrophy, unspecified Birthmark of skin removed from neck History of chicken pox Varicella vaccination Surgical History Status post colposcopy Status post surgery artery repair of thigh History of tonsillectomy and adenoidectomy Family History Father , age 40 of metastatic stomach cancer No problems noted. Denies family history of Ovarian cancer Breast cancer Colorectal cancer Social History Smoking Status: Never smoker Do You Dip or Chew Tobacco: No; Hx Alcohol Use: No Preferred Language: Nigerian marital status details: Emile Miner (30) [phone] Current Living Situation: Spouse Current Living Situation Comment: lives with spouse, dogs current occupational status: employed and student current occupation: PhD student [employer] Feels Safe at Home: Yes Physical Exam Vital Signs Vital Signs - 24 hr 06/14/24 13:14 06/14/24 13:26 06/14/24 13:29 Temperature 37.0 C Temperature Source Temporal Artery Scan Pulse Rate 151 H 143 H Pulse Rate [Right Finger] 135 H Respiratory Rate 19 18 Respiratory Effort / Characteristics Non-Labored Spontaneous Blood Pressure 143/82 H Blood Pressure [Left Arm] 136/71 Blood Pressure Mean 102 Blood Pressure Mean [Left Arm] 92 Blood Pressure Position [Left Arm] Lying Pulse Oximetry 100 96 Oxygen Delivery Method Room Air Room Air Sepsis Recent Fever Within 48 Hours No Sepsis New/Unexplained Change in Mental Status N/A Sepsis Action Taken by Nursing No Action Required 06/14/24 13:51 06/14/24 15:11 Temperature Temperature Source Pulse Rate 137 H Pulse Rate [Right Finger] 115 H Respiratory Rate 20 18 Respiratory Effort / Characteristics Non-Labored Spontaneous Blood Pressure Blood Pressure [Left Arm] 99/61 L Blood Pressure Mean Blood Pressure Mean [Left Arm] 73 Blood Pressure Position [Left Arm] Sitting Pulse Oximetry 99 96 Oxygen Delivery Method Room Air Room Air Sepsis Recent Fever Within 48 Hours Sepsis New/Unexplained Change in Mental Status Sepsis Action Taken by Nursing CONSTITUTIONAL: Healthy and well nourished. Alert and oriented X 3. Patient does not appear acutely ill or toxic. HEENT: No scleral icterus or conjunctival injection. Mucous membranes are dry. RESPIRATORY: Clear to auscultation bilaterally with no wheezing, crackles, rhonchi or stridor. CARDIOVASCULAR: Tachycardic rate and rhythm with no murmurs, rubs or gallops. GASTROINTESTINAL: Bowel sounds present in all quadrants. Abdomen is soft and nontender to palpation. Fundal height is consistent with gestational age. MUSCULOSKELETAL: No dependent edema appreciated. INTEGUMENTARY: No rash or other significant dermatologic conditions noted. HEMATOLOGIC: No ecchymosis or petechiae. PSYCHIATRIC: Positive affect. NEUROLOGIC: No focal neurologic deficits noted. Course Course Patient history and physical exam were performed. Nurses notes were reviewed. Vital signs were reviewed, showing a tachycardia. The patient is otherwise normotensive, afebrile and not hypoxic. IV access was established, and labs ordered by my attending physician, and drawn prior to my exam. After my evaluation, the patient was ordered IV normal saline bolus, as well as IV Benadryl. An ECG was performed, showing a sinus tachycardia without any other concerning findings. Review of labs does not show any significant leukocytosis. The patient is minimally hyponatremic at 135. Creatinine is normal. Patient is mildly hypomagnesemic.. Urinalysis does not show any proteinuria, hematuria or signs of infection. Biofire PCR upper respiratory panel was positive for COVID- 19. Also incidentally ordered a total creatinine kinase, which was normal. Patient's vital signs reviewed, showing a persistent heart rate in the 120s and 130s. Findings were discussed with the patient. I did indicate that I would be happy to call the Maternal Medicine on-call physician to see if the patient would benefit from Paxlovid treatment. The patient indicated that she refuses taking his medicine anyway. At this point, I did recommend that she contact the office to let them know of her current situation. The patient was encouraged to remain well-hydrated. I indicated that she certainly could take Benadryl at home as needed for difficulty sleeping and nausea. Tylenol if needed for additional pain or fever control. Prior to discharge, it was noticed that she still had a heart rate in the 130s. The case was further discussed with Dr. Boateng, ED attending physician, who recommended additional IV hydration, and magnesium repletion. Cardiac monitoring was reviewed to show no concerning findings. She also reviewed the patient's ECG. At this point, we also ordered a BNP and troponin level, both of which were normal. The patient was administered an additional normal saline 500 cc bolus, along with IV magnesium over an hour. The patient was reassessed with mild improvement of her shortness of breath, but she still continued to remain tachycardic as high as the low 140s. This was noticed when she would get up to go to the bathroom and return to her bed. At this point, I did recommend hospitalist consultation, and the patient was in agreement. I reached out to the [facility] Hospitalist service (Dr. Arreola), who will further evaluate the patient. Please see hospitalist dictation for further treatment and final disposition. The [facility], who will further observe the patient until the hospitalist service can evaluate the patient. Administered Medications Discontinued Medications Diphenhydramine HCl (Diphenhydramine 50 Mg/Ml Vial) 25 mg IV NOW STA Stop: 06/14/24 14:11 Last Admin: 06/14/24 14:20 Dose: 25 mg Documented By: ASHWIN Sodium Chloride (Nss) 1,000 mls @ 999 mls/hr IV .Q1H1M ONE Stop: 06/14/24 14:27 Last Admin: 06/14/24 13:50 Dose: 999 mls/hr Documented By: QIAN Acetaminophen (Ofirmev) 1,000 mg in 100 mls @ 400 mls/hr IV NOW STA Stop: 06/14/24 14:24 Last Infusion: 06/14/24 15:25 Dose: Infused Documented By: Admin: 06/14/24 14:21 Dose: 400 mls/hr Documented By: ASHWIN Magnesium Sulfate/Dextrose (Magnesium Sulfate / D5w) 1 gm in 100 mls @ 100 mls/hr IV NOW STA Stop: 06/14/24 16:11 Last Admin: 06/14/24 15:18 Dose: 100 mls/hr Documented By: QIAN Sodium Chloride (Nss) 500 mls @ 999 mls/hr IV .Q31M ONE Stop: 06/14/24 15:50 Last Admin: 06/14/24 15:27 Dose: 999 mls/hr Documented By: QIAN Medical Decision Making Medical Records Attestation: I reviewed the patient's medical records. Home Medications was personally reviewed by nc Laboratory Data Attestation: I reviewed the patient's lab results. 06/14/24 13:30 06/14/24 13:30 Lab Results 06/14/24 06/14/24 06/14/24 Range/Units 13:24 13:30 13:43 WBC 6.95 (4.8-10.8) K/ul RBC 3.97 L (4.20-5.40) M/uL Hgb 11.2 L (12.0-16.0) g/dl Hct 33.4 L (37.0-47.0) % MCV 84.1 (80.0-100.0) fL MCH 28.2 (25.0-34.0) pg MCHC 33.5 (32.0-36.0) g/dL RDW Std Deviation 39.2 (36.4-46.3) fL RDW Coeff of Babar 12.9 (11.5-14.5) % Plt Count 258 (130-400) K/uL MPV 10.0 (9.4-12.4) fL Immature Gran % (Auto) 0.6 % Neut % (Auto) 85.9 % Lymph % (Auto) 4.6 % Bowman % (Auto) 8.1 % Eos % (Auto) 0.7 % Baso % (Auto) 0.1 % Neut # (Auto) 5.97 (1.40-6.50) K/uL Lymph # (Auto) 0.32 L (1.20-3.40) K/uL Bowman # (Auto) 0.56 (0.11-0.59) K/uL Eos # (Auto) 0.05 (0.00-0.50) K/uL Baso # (Auto) 0.01 (0.00-0.20) K/uL Immature Gran # (Auto) 0.04 (0.01-0.20) K/uL PT 10.3 (9.0-12.0) Seconds INR 0.9 (0.9-1.1) Sodium 135 L (136-145) mmol/L Potassium 3.8 (3.5-5.1) mmol/L Chloride 103 (98-107) mmol/L Carbon Dioxide 25 (21-32) mmol/L Anion Gap 7 (3-11) BUN 4 L (6-23) mg/dl Creatinine 0.43 L (0.6-1.2) mg/dl Est Cr Clr Drug Dosing 289.7 ml/min Est GFR ( Amer) > 150.0 ml/min Est GFR (Non-Af Amer) 141.4 ml/min BUN/Creatinine Ratio 9.3 L (10-20) Glucose 94 (70-99(Fasting)) mg/dl Calcium 9.1 (8.6-10.3) mg/dl Magnesium 1.5 L (1.7-2.4) mg/dl Total Bilirubin 0.3 (0.2-1.0) mg/dl AST 31 (13-39) U/L ALT 31 (7-52) U/L Alkaline Phosphatase 74 (34-104) U/L Total Creatine Kinase 171 (26-192) U/L Troponin I High Sens 4.4 (0-14) pg/ml B-Natriuretic Peptide (0-100) pg/ml Total Protein 6.8 (6.0-8.3) gm/dl Albumin 3.7 (3.4-5.0) gm/dl Globulin 3.1 (2.5-4.0) gm/dl Albumin/Globulin Ratio 1.2 (0.9-2) Urine Color Yellow Urine Appearance Clear (Clear) Urine pH 8.5 H (4.5-7.5) Ur Specific [place] 1.015 (1.000-1.030) Urine Protein Negative (Negative) Urine Glucose (UA) Negative (Negative) Urine Ketones Negative (Negative) Urine Blood Negative (Negative) Urine Nitrite Negative (Negative) Urine Bilirubin Negative (Negative) Urine Urobilinogen Negative (Negative) Ur Leukocyte Esterase Negative (Negative) Adenovirus (PCR) Not Detected (NotDetected) B. pertussis DNA (PCR) Not Detected (NotDetected) B.parapertussis DNA PCR Not Detected (NotDetected) C. pneumoniae DNA (PCR) Not Detected (NotDetected) Coronavirus OC43 (PCR) Not Detected (NotDetected) Coronavirus HKU1 (PCR) Not Detected (NotDetected) Coronavirus 229E (PCR) Not Detected (NotDetected) SARS-CoV-2 (PCR) DETECTED A (NotDetected) Coronavirus NL63 (PCR) Not Detected (NotDetected) Human Metapneumovir PCR Not Detected (NotDetected) Influenza Type A (PCR) Not Detected (NotDetected) Influenza Type B (PCR) Not Detected (NotDetected) M. pneumoniae (PCR) Not Detected (NotDetected) Parainfluenza 1 (PCR) Not Detected (NotDetected) Parainfluenza 2 (PCR) Not Detected (NotDetected) Parainfluenza 3 (PCR) Not Detected (NotDetected) Parainfluenza 4 (PCR) Not Detected (NotDetected) RSV (PCR) Not Detected (NotDetected) Entero/Rhino (PCR) Not Detected (NotDetected) 06/14/24 Range/Units 15:48 WBC (4.8-10.8) K/ul RBC (4.20-5.40) M/uL Hgb (12.0-16.0) g/dl Hct (37.0-47.0) % MCV (80.0-100.0) fL MCH (25.0-34.0) pg MCHC (32.0-36.0) g/dL RDW Std Deviation (36.4-46.3) fL RDW Coeff of Babar (11.5-14.5) % Plt Count (130-400) K/uL MPV (9.4-12.4) fL Immature Gran % (Auto) % Neut % (Auto) % Lymph % (Auto) % Bowman % (Auto) % Eos % (Auto) % Baso % (Auto) % Neut # (Auto) (1.40-6.50) K/uL Lymph # (Auto) (1.20-3.40) K/uL Bowman # (Auto) (0.11-0.59) K/uL Eos # (Auto) (0.00-0.50) K/uL Baso # (Auto) (0.00-0.20) K/uL Immature Gran # (Auto) (0.01-0.20) K/uL PT (9.0-12.0) Seconds INR (0.9-1.1) Sodium (136-145) mmol/L Potassium (3.5-5.1) mmol/L Chloride (98-107) mmol/L Carbon Dioxide (21-32) mmol/L Anion Gap (3-11) BUN (6-23) mg/dl Creatinine (0.6-1.2) mg/dl Est Cr Clr Drug Dosing ml/min Est GFR ( Amer) ml/min Est GFR (Non-Af Amer) ml/min BUN/Creatinine Ratio (10-20) Glucose (70-99(Fasting)) mg/dl Calcium (8.6-10.3) mg/dl Magnesium (1.7-2.4) mg/dl Total Bilirubin (0.2-1.0) mg/dl AST (13-39) U/L ALT (7-52) U/L Alkaline Phosphatase (34-104) U/L Total Creatine Kinase (26-192) U/L Troponin I High Sens (0-14) pg/ml B-Natriuretic Peptide 28 (0-100) pg/ml Total Protein (6.0-8.3) gm/dl Albumin (3.4-5.0) gm/dl Globulin (2.5-4.0) gm/dl Albumin/Globulin Ratio (0.9-2) Urine Color Urine Appearance (Clear) Urine pH (4.5-7.5) Ur Specific [place] (1.000-1.030) Urine Protein (Negative) Urine Glucose (UA) (Negative) Urine Ketones (Negative) Urine Blood (Negative) Urine Nitrite (Negative) Urine Bilirubin (Negative) Urine Urobilinogen (Negative) Ur Leukocyte Esterase (Negative) Adenovirus (PCR) (NotDetected) B. pertussis DNA (PCR) (NotDetected) B.parapertussis DNA PCR (NotDetected) C. pneumoniae DNA (PCR) (NotDetected) Coronavirus OC43 (PCR) (NotDetected) Coronavirus HKU1 (PCR) (NotDetected) Coronavirus 229E (PCR) (NotDetected) SARS-CoV-2 (PCR) (NotDetected) Coronavirus NL63 (PCR) (NotDetected) Human Metapneumovir PCR (NotDetected) Influenza Type A (PCR) (NotDetected) Influenza Type B (PCR) (NotDetected) M. pneumoniae (PCR) (NotDetected) Parainfluenza 1 (PCR) (NotDetected) Parainfluenza 2 (PCR) (NotDetected) Parainfluenza 3 (PCR) (NotDetected) Parainfluenza 4 (PCR) (NotDetected) RSV (PCR) (NotDetected) Entero/Rhino (PCR) (NotDetected) MDM Narrative See ED Course section for further details of today's visit. The patient presents with abrupt onset of multiple symptoms consistent with a viral infection. It is noted that the patient does clinically appear dehydrated, and does have a tachycardia. The patient was also administered IV Benadryl for nausea, reporting that she is not allowed to take any other nausea medications. Review of labs shows a positive bio fire test for COVID-19. The remaining labs are otherwise nonconcerning. I did offer to call the maternal- unit, however the patient refused, indicating that she would not start Paxlovid regardless. Unfortunately, the patient continued to have persistent tachycardia, even with a normal saline 1.5 L bolus, and magnesium repletion. Additional workup showed a negative troponin and BNP. Given her persistent tachycardia and a second trimester , the patient agrees to hospitalist evaluation. The patient's case was discussed with the [facility] hospitalist service, who will further evaluate the patient. The case was also discussed with Dr. Hazel, [facility] ED attending physician, who is aware of the patient's current situation. Impression Tachycardia, Upper respiratory tract infection due to COVID-19 virus, High-risk in second trimester, Pompe disease Discharge Plan Visit Data Chief Complaint: Flu Like Symptoms Stated Complaint: SOB, 22 WEEKS PREG, FLU LIKE SYMPTOMS ED Provider: Jackie Boateng ED Midlevel Provider: Harish Randall Discharge Problem: Tachycardia, Upper respiratory tract infection due to COVID-19 virus, High-risk in second trimester, Pompe disease Patient Disposition: Home - Self-Care Discharge Instructions Activity Restrictions/Additional Instructions: Testing is positive for COVID-19. Rest and remain well-hydrated. Take Tylenol 500 mg every 4 hours for best pain and fever control. Take Benadryl 25 to 50 mg every 6-8 hours as needed to help with sleep, and for nausea. Follow-up with your NURSERY TEACHER as needed for further evaluation and management. Return to the emergency department for any progressively worsening symptoms. Forms Stand Alone Forms: My [facility], Important Visit Information Prescriptions Prescriptions: No Action aspirin [Aspirin Low-Strength] 81 mg Tablet,Delayed Release (Dr/Ec) 81 mg PO HS Nexviazyme 100 mg Recon Soln 0 mg IV .Q 2 WEEKS Rx Instructions: 600 ML INFUSION PER PATIENT..UNKNOWN MG...PT STATES HAD 3 WEEKS AGO DUE TO BEING ON A TRIP..HAS NEXT DOSE SCHEDULED Vitamin Tablet 1 tab PO HS Referrals Referrals: [facility] [Primary Care Provider] -
[2024-06-14] MEDS: diphenhydrAMINE 50 MG/ML VIAL IV STA ×2 (14:20→22:39)
[2024-06-14] MEDS: ACETAMINOPHEN 1,000 MG/100 ML VIAL IV STA ×2 (14:21→22:39)
[2024-06-14 14:30] LABS: INR 0.9 (0.9-1.1); Prothrombin Time 10.3 Seconds (9.0-12.0)
[2024-06-14 14:34] LABS: Adenovirus PCR Not Detected (NotDetected); Bordetella parapertussis PCR Not Detected (NotDetected); Bordetella pertussis PCR Not Detected (NotDetected); Chlamydia pneumoniae PCR Not Detected (NotDetected); Coronavirus 229E PCR Not Detected (NotDetected); Coronavirus CoV-2 (COVID19)PCR DETECTED (NotDetected); Coronavirus HKU1 PCR Not Detected (NotDetected); Coronavirus NL63 PCR Not Detected (NotDetected); Coronavirus OC43PCR Not Detected (NotDetected); Human Metapneumovirus PCR Not Detected (NotDetected); Influenza A PCR Not Detected (NotDetected); Influenza B PCR Not Detected (NotDetected); Mycoplasma pneumoniae PCR Not Detected (NotDetected); Parainfluenza Virus 1 PCR Not Detected (NotDetected); Parainfluenza Virus 2 PCR Not Detected (NotDetected); Parainfluenza Virus 3 PCR Not Detected (NotDetected); Parainfluenza Virus 4 PCR Not Detected (NotDetected); Respiratory Syncytial VirusPCR Not Detected (NotDetected); Rhinovirus/Enterovirus PCR Not Detected (NotDetected)
[2024-06-14 14:49] LABS: Creatine Kinase 171 U/L (26-192)
[2024-06-14] MEDS: MAGNESIUM SULFATE / D5W 1 GM/100 ML BAG IV STA (15:18)
[2024-06-14] MEDS: SODIUM CHLORIDE 0.9% 500 ML IV ONE (15:27)
[2024-06-14 15:54] LABS: Troponin I High Sensitivity 4.4 pg/ml (0-14)
--- NOTE | 2024-06-14 17:56 | History & Physical Report ---
Date of Service June 14, 2024 Assessment & Plan (1) High-risk in second trimester: Plan: Last menstrual, MARJORIE 10/22/2023 approximately 22-weeks Patient is continued on aspirin 81 mg daily for increased risk until 28 weeks heart tones ordered while admitted Discussed w/ [facility] Dr. Jeffrey given increased risk . Recommended Lovenox 40 mg daily while admitted, and continuing aspirin 80 mg daily throughout. Does not need to be discharged with any additional Lovenox if she is well enough to go home. If patient has any complications can be reached through the MD call network at [phone] and would be happy to discuss any further needs or potential transfer at that time; currently agree with supportive plan of care as noted. 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 Receives IV infusions every 2 weeks PFTs 09/2023 within normal ranges Last echo 2022 was per patient normal Next infusion due 06/16/2024 (3) COVID: Plan: COVID Without hypoxia, steroids not indicated Patient reports that she would not be interested and would decline Paxlovid even if indicated as outpatient Normotensive Tachycardia improved not resolved fluids. EKG/sinus tachycardia, there are lead III T wave inversions these were compared to prior and are not new. No pleuritic pain suggestive of PE. -Suspect her tachycardia is reactive. Her leg pain/calf pain and swelling are likely related to COVID plus however will obtain Dopplers to r/o DVT. She is not hypoxic. Plan DVT prophylaxis: Disposition: Placed on fourth floor for ability of tones CODE: Full Diet: Regular History of Present Illness Primary Care Provider: [facility] Kelly is a 24-year-old female with past medical history of Pompe disease, radiculopathy, exotropia, and who presents to the ER with muscle aches, nonproductive cough, nausea/vomiting, and loose stools of 1 day with chills overnight. She has a high risk due to underlying glycogen metabolic disease and is in her second trimester. She receives IV enzyme replacement and follows with [facility] and locally with [facility]. She is not able to be prescribed Zofran. On ER assessment she is found to be volume contracted and PCR positive for COVID-19. Paxlovid was discussed with patient by ER provider, patient reports that even if recommended she would refuse this medication. She was being evaluated for discharge however remained tachycardic and volume contracted who recommended overnight observation due to tachycardia and poor clinical appearance with high risk . Kelly seen at the bedside. She reports that for 2 days she is felt feverish, achy, fatigued, and very tired. She notes she aches all over including her legs and calfs. She has had bilateral leg swelling with however this has not changed and she has no calf asymmetry or 1 leg that is more painful than the other. She reports that she has had a dry cough for the last 2 days. She denies any pain with deep breathing. No chest pain or chest pressure. Overall she reports she just feels poorly. Nausea is increased. She has had some loose bowels. She takes aspirin for increased risk of , and is on enzyme replacement therapy for a type II glycogen-storage disease for which her next infusion is due on Sunday. Medical History: Reviewed Medications: Reviewed Surgical History: Reviewed Family history: Reviewed Allergies: Reviewed Social History: Reviewed Code Status: Full Allergies Allergy/AdvReac Type Severity Reaction Status Date / Time No Known Drug Allergies Allergy Unknown Verified 06/14/24 16:58 hazelnuts Allergy Intermediate tingly Uncoded 06/14/24 16:58 mouth and throat peaches Allergy Mild tingly Uncoded 06/14/24 16:58 tongue Home Medications Medication Instructions Recorded Confirmed Type aspirin 81 mg tablet,delayed 81 mg PO HS 06/14/24 06/14/24 History release avalglucosidase oumar-ngpt 100 mg 0 mg IV .Q 2 WEEKS 06/14/24 06/14/24 History intravenous solution (Nexviazyme) prenat.vits,domo,[id number]-[id number] 1 tab PO HS 06/14/24 06/14/24 History Past Med/Surg History Problem List (Updated 06/14/24 @ 17:47 by James Arreola MD) COVID Tachycardia (Acute) Pompe disease (Acute) High-risk in second trimester (Acute) Upper respiratory tract infection due to COVID-19 virus (Acute) Supervision of normal first Rash and nonspecific skin eruption Fatty liver Elevated LFTs Lumbosacral radiculopathy Alternating exotropia Weakness of both lower extremities Low back pain Hip pain, bilateral Proximal limb muscle weakness Medical History Pompe disease Oral allergy syndrome Seasonal rhinitis Limb girdle muscular dystrophy, unspecified Birthmark of skin removed from neck History of chicken pox Varicella vaccination Surgical History Status post colposcopy Status post surgery artery repair of thigh History of tonsillectomy and adenoidectomy Family History Father , age 40 of metastatic stomach cancer No problems noted. Denies family history of Ovarian cancer Breast cancer Colorectal cancer Social History Smoking Status: Never smoker Do You Dip or Chew Tobacco: No; Hx Alcohol Use: No Preferred Language: Cambodian marital status details: Emile Miner (30) [phone] Current Living Situation: Spouse Current Living Situation Comment: lives with spouse, dogs current occupational status: employed and student current occupation: PhD student [employer] Feels Safe at Home: Yes Physical Exam Physical Exam: General: A&Ox3. NAD. Cooperative. HEENT: Atraumatic, normocephalic. Pulm: CTAB A&P. -wheezes, -rales, -rhonchi. Symmetrical chest rise. No increased work of breathing. No respiratory distress. Cardiac: RRR, -mrg. Radial pulses intact and symmetrical. Abdominal: Nontender, nondistended, soft. BS present. Results & Data Results & Data Vital Signs (Past 12 Hours) Vital Signs Temp Pulse Pulse Resp BP BP Pulse Ox 06/14/24 17:31 123 H 06/14/24 17:00 125 H 18 118/77 100 06/14/24 15:11 115 H 18 99/61 L 96 06/14/24 13:51 137 H 20 99 06/14/24 13:29 143 H 06/14/24 13:26 135 H 18 136/71 96 06/14/24 13:14 37.0 C 151 H 19 143/82 H 100 O2 Del Method 06/14/24 17:31 06/14/24 17:00 Room Air 06/14/24 15:11 Room Air 06/14/24 13:51 Room Air 06/14/24 13:29 06/14/24 13:26 Room Air 06/14/24 13:14 Room Air PG Care Time/CCT Total # of Minutes Spent Total Time Spent with Patient: Total time spent is greater than 50% in coordination of care (as documented) at patient's floor/unit and/or counseling patient: Coding Level of Care Code 40473 INT INP/OBS CARE 3/75MIN Diagnoses High-risk in second trimester O09.92 Pompe disease E74.02 COVID U07.1
[2024-06-14] MEDS: ENOXAPARIN INJ 40 MG/0.4 ML SYR SQ SCH (19:25)
--- NOTE | 2024-06-14 22:19 | Ultrasound Report ---
ULTRASOUND BILATERAL LOWER EXTREMITY VENOUS CLINICAL HISTORY: Lower extremity edema. Tachycardia. COMPARISON STUDY: No priors. TECHNIQUE: Real-time, grayscale, and color Doppler sonography of the deep veins of the right and left lower extremity was performed from the inguinal crease to the calf. Compression and augmentation wer e utilized. FINDINGS: There is no sonographic evidence of deep venous thrombosis identified in the right or left lower extremity. The common femoral, superficial femoral, and popliteal veins are patent and normally compressible bilaterally. The greater saphenous vein and the profunda femoris vein at the junction w ith the common femoral vein are clear in both legs. The visualized calf veins are patent bilaterally. IMPRESSION: There is no sonographic evidence of deep venous thrombosis identified in the right or lef t lower extremity. ACT 112: Negative or not required by law. Electronically signed by: Pranav Koch M.D. 06/14/2024 10:17 PM
[2024-06-15] MEDS: ASPIRIN 81 MG ECTAB PO SCH (00:10)
[2024-06-15 04:19] VITALS: RESP 18
[2024-06-15 05:58] LABS: Basophils # (auto) 0.03 K/uL (0.00-0.20); Basophils % (auto) 0.5 %; Eosinophils # (auto) 0.03 K/uL (0.00-0.50); Eosinophils % (auto) 0.5 %; Hemoglobin 10.5 g/dl (12.0-16.0); Immature Granulocytes # (auto) 0.05 K/uL (0.01-0.20); Immature Granulocytes % (auto) 0.9 %; Lymphocytes % (auto) 19.2 %; Mean Corpuscular Hemoglobin 27.5 pg (25.0-34.0); Mean Corpuscular Hgb Conc 32.8 g/dL (32.0-36.0); Mean Corpuscular Volume 83.8 fL (80.0-100.0); Mean Platelet Volume 9.8 fL (9.4-12.4); Monocytes # (auto) 0.74 K/uL (0.11-0.59); Monocytes % (auto) 12.9 %; Neutrophils # (auto) 3.78 K/uL (1.40-6.50); Platelet Count 242 K/uL (130-400); RDW Coefficient of Variation 13.2 % (11.5-14.5); RDW Standard Deviation 40.3 fL (36.4-46.3); Red Blood Count 3.82 M/uL (4.20-5.40); White Blood Count 5.73 K/ul (4.8-10.8)
[2024-06-15 06:15] LABS: Anion Gap 7 (3-11); BUN Creatinine Ratio 10.3 (10-20); Blood Urea Nitrogen 4 mg/dl (6-23); Calcium 8.8 mg/dl (8.6-10.3); Carbon Dioxide 23 mmol/L (21-32); Chloride 107 mmol/L (98-107); Creatinine Clr Calc Pharmacy 320.6 ml/min; Est GFR (African American) > 150.0 ml/min; Glucose 93 mg/dl (70-99(Fasting)); Potassium 3.5 mmol/L (3.5-5.1); Sodium 137 mmol/L (136-145)
--- NOTE | 2024-06-15 07:31 | Hospitalist Progress Note ---
Date of Service June 15, 2024 Assessment & Plan (1) High-risk in second trimester: Plan: Last menstrual, MARJORIE 10/22/2023 approximately 22-weeks Continued aspirin 81 mg daily for increased risk until 28 weeks Continue monitoring heart tones while admitted As per [facility] Dr. Jeffrey will continue Lovenox 40 mg daily while admitted. 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 Receives IV infusions every 2 weeks PFTs 09/2023 within normal ranges Last echo 2022 was per patient normal Next infusion due 06/16/2024, will discuss with house worker if infusion can be given while pt is admitted (3) COVID: Plan: COVID Without hypoxia, steroids not indicated Normotensive Sinus tachycardia continues. Will bolus 1L LR in setting of dehydration - Monitor vitals - Symptom management tylenol Plan DVT prophylaxis: Disposition: Placed on fourth floor for ability of tones CODE: Full Diet: Regular Admission and Anticipated Discharge Date Admission Date: June 14, 2024 Supervising Physician Co-Signing Physician Notes I personally examined the patient and verified all lazo points of history and exam, discussed case, and agree with decision making with Dr Barber see discharge summary as well Subjective Pt is a 24 yo female with hx of Pompe disease and is currently 22 weeks recently diagnosed COVID positive with primarily URI symptoms. Pt reports coughing with sputum production, chills, and headache. Has occasional burning in her chest with excessive coughing. Had one episode of loose stool prior to ED visit Pt denies CP, SOB, nausea, vomiting, numbness/tingling, changes in vision, Review of Systems Review of Systems: As per HPI Physical Exam Constitutional: WD/WN, vitals as above Respiratory: normal respiratory effort, lungs clear to auscultation Cardiovascular: Rate/Rhythm: regular rate and + tachycardic Heart Sounds: no murmur Gastrointestinal (Abdomen): normal bowel sounds, soft, nontender, no hepatosplenomegaly Skin: no rashes, warm and dry Psychiatric: A+Ox3, euthymic affect Results & Data Results & Data Vital Signs (Past 12 Hours) Vital Signs Temp Pulse Pulse Resp BP BP Pulse Ox 06/15/24 07:28 100 H 06/15/24 03:56 36.8 C 105 H 18 95/59 L 97 06/15/24 02:06 95 H 06/15/24 00:31 95/67 L 06/14/24 22:27 37.2 C 127 H 22 115/61 97 06/14/24 22:00 06/14/24 21:49 123 H 06/14/24 21:37 126 H 22 118/101 H 98 O2 Del Method 06/15/24 07:28 06/15/24 03:56 Room Air 06/15/24 02:06 06/15/24 00:31 06/14/24 22:27 Room Air 06/14/24 22:00 Room Air 06/14/24 21:49 06/14/24 21:37 Room Air Resident Activity Tracking Resident Involvement: Resident Care Provided Care Provided: Adult Hospital Medicine
[2024-06-15 08:04] VITALS: TEMP 98.4
[2024-06-15] MEDS: ACETAMINOPHEN 500 MG TAB PO PRN (09:43)
[2024-06-15 12:44] VITALS: BP 117/79; O2SAT 98
[2024-06-15] MEDS: LACTATED RINGER'S 1,000 ML IV ONE (13:29)
[2024-06-15 15:49] VITALS: PULSE 98
--- NOTE | 2024-06-15 16:36 | Electrocardiogram Report ---
Test Reason : Blood Pressure : */* mmHG Vent. Rate : 133 BPM Atrial Rate : 133 BPM P-R Int : 120 ms QRS Dur : 84 ms QT Int : 288 ms P-R-T Axes : 55 69 22 degrees QTcB Int : 428 ms Sinus tachycardia Otherwise normal ECG When compared with ECG of 12-May-2024 15:19, No significant change was found Confirmed by Inez Zavala (Daphne) on 06/15/2024 4:36:10 PM Referred By: REFERRED SELF Confirmed By: Inez Zavala
--- NOTE | 2024-06-15 17:07 | Billing Data ---
Date of Service June 15, 2024 Coding Level of Care Code 00306 IN/OBS DISCH 30 MIN/LESS
--- NOTE | 2024-06-15 17:07 | Discharge Summary ---
Discharge Summary Date of Service June 15, 2024 Principal Dx & Hospital Course #1 = Principal Diagnosis (1) COVID: COVID Without hypoxia, steroids not indicated Normotensive was significantly tachycardic - PO fluid intake down. tachy improving with IV fluids - and now PO intake better. she otherwise feels well and would like to go home - quite reasonable. encourage adequate PO fluid intake. 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 Receives IV infusions every 2 weeks PFTs 09/2023 within normal ranges Last echo 2022 was per patient normal Next infusion due 06/16/2024, discussed with case management - currently [facility] patients covid (+) can still get infusions - but physically are taken to [facility] (negative pressure room) instead of being at [facility] - and are asked to come via main entrance. relayed all of this to pt verbally and in writing - she noted she would also call from parking lot to prepare team to allow for more efficiency in the process. since it is a sunday afternoon and her appt is 7am sunday morning - no clear way to let [facility] team know about current covid status - pt will park by main entrance/call in/anticipate getting IV at [facility] tomorrow; to help facilitate this i also alerted [facility] team via [employer] as best i can about situation. (3) High-risk in second trimester: Last menstrual, MARJORIE 10/22/2023 approximately 22-weeks Continued aspirin 81 mg daily for increased risk until 28 weeks Continue monitoring heart tones while admitted As per [facility] Dr. Jeffrey was on Lovenox 40 mg daily while admitted. - Does not need to be discharged with any additional Lovenox -outpt OB and MFM f/u Plan doing better, feeling better, eating and drinking better: safe/stable for home. pt expressed good understanding, was on FaceTime during my visit as well. Notes For Next Care Provider Medication Changes From Visit none Admission HPI Per Admitting Provider Kelly is a 24-year-old female with past medical history of Pompe disease, radiculopathy, exotropia, and who presents to the ER with muscle ac hes, nonproductive cough, nausea/vomiting, and loose stools of 1 day with chills overnight. She has a high risk due to underlying glycogen metabolic disease and is in her second trimester. She receives IV enzyme replacement and follows with [facility] and locally with [facility]. She is not able to be prescribed Zofran. On ER assessment she is found to be volume contracted and PCR positive for COVID-19. Paxlovid was discussed with patient by ER provider, patient reports that even if recommended she would refuse this medication. She was being evaluated for discharge however remained tachycardic and volume contracted who recommended overnight observation due to tachycardia and poor clinical appearance with high risk . Kelly seen at the bedside. She reports that for 2 days she is felt feverish, achy, fatigued, and very tired. She notes she aches all over including her legs and calfs. She has had bilateral leg swelling with however this has not changed and she has no calf asymmetry or 1 leg that is more painful than the other. She reports that she has had a dry cough for the last 2 days. She denies any pain with deep breathing. No chest pain or chest pressure. Overall she reports she just feels poorly. Nausea is increased. She has had some loose bowels. She takes aspirin for increased risk of , and is on enzyme replacement therapy for a type II glycogen-storage disease for which her next infusion is due on Sunday. Medical History: Reviewed Medications: Reviewed Surgical History: Reviewed Family history: Reviewed Allergies: Reviewed Social History: Reviewed Code Status: Full Updated Medication List Medication Instructions Recorded Confirmed Type aspirin 81 mg tablet,delayed 81 mg PO HS 06/14/24 06/14/24 History release avalglucosidase oumar-ngpt 100 mg 0 mg IV .Q 2 WEEKS 06/14/24 06/14/24 History intravenous solution (Nexviazyme) prenat.vits,domo,xjt-ovlx-pphil 1 tab PO HS 06/14/24 06/14/24 History Hospital Stay Data Consultations 06/14/24 16:24 ED Decision to Admit Stat Diagnostic Imagining Performed 06/14/24 17:35 US venous doppler LE BI Stat Pending Results Patient Have Any Pending Studies at Discharge: No Discharge Instructions Given to Patient (Per Discharging Provider) covid -fortunately your respiratory vital signs/respiratory status looks great, and so while you obviously have a lot of lousy respiratory symptoms, you're quite stable from a covid standpoint in that respect -it appears the biggest thing truly making you feel lousy was dehydration - your heart rate was up a good deal, and it's come down nicely as you've gotten better hydrated -to that end, make sure you're drinking enough (60-80 ounces) at home -the cough might take a month to totally go away, and you'll likely feel an annoying degree of fatigue over that time frame, but as long as you're seeing slow and steady progress, you're getting better as expected (and even better would be proving me wrong and getting better faster than expected, but we usu ally anticipate about a month or so until back to "good as new") IV infusion -talking with case management - the [facility] will still be able to do your infusion tomorrow, they'll just have to do it with a little bit different "workflow" - she noted that they do the infusions in the [facility] instead because there is a negative pressure room -instead of going to the usual [facility] entrance, come to the main/front entrance. call [phone] (main hospital line) and let them know that you are a covid positive [facility] patient who was told to come to the main entrance in order to receive your infusion at [facility] instead ---the caser in told me that from there they'll have you come in the main entrance, and take you back to [facility], into the negative pressure room, and be able to give you your infusion. they ask that you have a mask on, thanks! -given that this is all happening on a sunday, and your appointment is 7am tomorrow, we'll try to let people know ahead of time as best we can - but since you'll basically be getting there for your appointment as they're getting there, anticipate a little bit of delay and/or "good natured confusion" but expect everything to be carried out well! echocardiogram -i'm not entirely sure what the current protocol for outpatient echocardiograms will be - as we discussed, hopefully they're still just able to do it with some modifications, but definitely call tomorrow to get guidance on how to carry things through Total Time Total Time Spent Total Time Spent (In Minutes): <30
--- NOTE | 2024-06-16 16:59 | Electrocardiogram Report ---
Test Reason : Blood Pressure : */* mmHG Vent. Rate : 127 BPM Atrial Rate : 127 BPM P-R Int : 134 ms QRS Dur : 78 ms QT Int : 314 ms P-R-T Axes : 42 61 19 degrees QTcB Int : 456 ms Sinus tachycardia Otherwise normal ECG When compared with ECG of 14-Jun-2024 13:22, No significant change was found Confirmed by Stew Greene ([id number]) on 06/16/2024 4:59:22 PM Referred By: REFERRED SELF Confirmed By: Stew Greene
== END 2024-06-15 16:30 | disposition home or self-care (01) ==
LOC: 4W 13:09 → ED 13:09 → SUATTDRO 18:14 → 4W 21:37